=== PATIENT | male | born 1975 | race Caucasian/White ===

== ENCOUNTER 2017-08-16 14:26 | Emergency (ER) | payer SELFPAY ==
[~2017-08-16] VITALS: Ht 182.9 cm; Wt 80.0 kg
[2017-08-16 14:28] VITALS: BP 131/77; PULSE 81; RESP 20; TEMP 99; O2SAT 99
--- NOTE | 2017-08-16 15:12 | PD ---
Physical Exam Time Seen by Provider: 15:09 Narrative 42yo M c/o right hand fracture that occurred 2 weeks ago and was seen at [facility] and it was splinted. The splint is currently not on. He is requesting a cast and referral to a hand surgeon. Also complaining of cat bite and scratch to his left lower leg. Denies fever, vomiting. Unknown tetanus status. Patient seen in triage. VS reviewed. Awaiting bed placement. See next providers note for final patient disposition. Data Data Last Documented VS Vital Signs Date Time Temp Pulse Resp B/P (MAP) Pulse Ox O2 Delivery O2 Flow Rate FiO2 08/16/17 14:28 99.0 81 20 131/77 (95) 99 Room Air MDM Supervised Visit with MEGHNA: Katalina Dick Aug 16, 2017 15:12
[2017-08-16] MEDS ORDERED: RABIES VACCINE HUMAN DIPL CELL 2.5 UNITS/ML SYRINGE IM ONE (16:30)
[2017-08-16] MEDS ORDERED: RABIES IMMUNE GLOBULIN INJ 300 UNITS/2 ML VIAL IM ONE (16:30)
--- NOTE | 2017-08-16 16:43 | RADRPT ---
EXAM DATE/TIME: 08/16/2017 16:03 [place] COMPARISON: No previous studies available for comparison. INDICATIONS : Right hand pain, second digit MEDICAL HISTORY : None. SURGICAL HISTORY : None. ENCOUNTER: Initial ACUITY: 1 day PAIN SCORE: 8/10 LOCATION: Right upper extremity FINDINGS: Periosteal reaction seen distal shaft and neck region of the second metacarpal. I don't see a fractur e line. Other bones of the right hand appear normal. There are no subluxations. No radiopaque foreign body. CONCLUSION: Periosteal reaction of the distal half of the second metacarpal, nonspecific. Infection would be in t he differential in the proper clinical setting. A subacute fracture is conceivable but less likely as a distinct fracture line is not visible. I also don't see an underlying focal bone lesion. Jimbo Collins MD on August 16, 2017 at 16:39 Board Certified Radiologist. This report was verified electronically.
[2017-08-16] MEDS ORDERED: AUGM875T3 PO (17:57)
--- NOTE | 2017-08-16 17:57 | PD ---
HPI Chief Complaint: Injury Time Seen by Provider: 16:05 Travel History International Travel<30 days: No Contact w/Intl Traveler<30days: No Traveled to known affect area: No History of Present Illness HPI 42 y male presents to the ED for concern of being scratched and bit by a cat today. Says that this was an unprovoked ferel cat bite. Pt states that he has noticed this cat acting strange and 'gnawing' at his back door. Apparently, he has seen this cat around the neighborhood and it has had an erratic behavior. Pt denies significant pain or swelling. Denies significant blood loss. States the cat injured him in his right lower calf. Denies fever, chills, tremors, shortness of breath, chest pain. In addition, he says that his Right second MCP had significant pain after 'cracking' his finger on the car dash 3 days ago. States he intentionally did this as he normally cracks his knuckles but the last time her did this, he developed significant pain and swelling. Says he previously was evaluated at [facility] and told him he had a fracture. He does not have discharge paperwork with him. Denies IVDU, chronic medical conditions, or medication use. Says he uses OTC medications for pain. Denies numbness or tingling of the extremities. Has full function of his hand however, it is very painful. [facility] Past Medical History Medical History: Denies Significant Hx ?: Not Past Surgical History Surgical History: No Previous Surgery Social History Alcohol Use: No Tobacco Use: No Substance Use: No Allergies-Medications (Allergen,Severity, Reaction): Coded Allergies: morphine (Verified Allergy, Unknown, 08/16/17) Reported Meds & Prescriptions Reported Meds & Active Scripts Active Augmentin (Amoxicillin-Clavulanate) 875-125 Mg Tab 1 Tab PO BID Review of Systems Except as stated in HPI: all other systems reviewed are Neg Physical Exam Narrative GENERAL: Well developed, well nourished, non toxic appearing male SKIN: Warm and dry. right lower calf, 3 puncture wounds consistent with superficial bite, multiple superficial lacerations, no erythema or edema of the leg. Neurovascularly intact. HEAD: Atraumatic. Normocephalic. No evidence of recent IVDU or watson to indicate such. EYES: Pupils equal and round. No scleral icterus. No injection or drainage. ENT: No nasal bleeding or discharge. Mucous membranes pink and moist. NECK: Trachea midline. No JVD. CARDIOVASCULAR: Regular rate and rhythm. RESPIRATORY: No accessory muscle use. Clear to auscultation. Breath sounds equal bilaterally. GASTROINTESTINAL: Abdomen soft, non-tender, nondistended. Hepatic and splenic margins not palpable. MUSCULOSKELETAL: Extremities without clubbing, cyanosis, or edema. No obvious deformities. right hand- second MCP, edema without erythema, ecchymosis directly over joint, limited ROM secondary to pain, normal cap refill, 2 point discrimination normal , decreased strength secondary to pain. NEUROLOGICAL: Awake and alert. No obvious cranial nerve deficits. Motor grossly within normal limits. Five out of 5 muscle strength in the arms and legs except where noted. Normal speech. PSYCHIATRIC: Appropriate mood and affect; insight and judgment normal. Right 2nd MCP Data Data Last Documented VS Vital Signs Date Time Temp Pulse Resp B/P (MAP) Pulse Ox O2 Delivery O2 Flow Rate FiO2 08/16/17 18:12 08/16/17 14:28 99.0 81 20 99 Room Air Orders Orders Hand, Complete ([id number]) (08/16/17 15:12) Rabies Immune Globulin Inj (Hyperrab S/D (08/16/17 16:30) Rabies Vaccine Human Cell Inj (Imovax In (08/16/17 16:30) Tetanus/Diphtheria Tox Adult (Tetanus/Di (08/16/17 18:00) Support Splint (08/16/17 18:09) Mandatory Outpatient Referral (08/16/17 18:10) Ed Discharge Order (08/16/17 18:14) Cockup Hand Splint (08/16/17 ) MDM Medical Decision Making Medical Screen Exam Complete: Yes Emergency Medical Condition: Yes Differential Diagnosis cat bite, rabies vaccination, osteomyelitis, cellulitis Narrative Course 42 y male presents to the ED for concern of being scratched and bit by a cat today. Says that this was an unprovoked ferel cat bite. Pt states that he has noticed this cat acting strange and 'gnawing' at his back door. Apparently, he has seen this cat around the neighborhood and it has had an erratic behavior. Pt denies significant pain or swelling. Denies significant blood loss. States the cat injured him in his right lower calf. Denies fever, chills, tremors, shortness of breath, chest pain. In addition, he says that his Right second MCP had significant pain after 'cracking' his finger on the car dash 3 days ago. States he intentionally did this as he normally cracks his knuckles but the last time her did this, he developed significant pain and swelling. Says he previously was evaluated at [facility] and told him he had a fracture. He does not have discharge paperwork with him. Denies IVDU, chronic medical conditions, or medication use. Says he uses OTC medications for pain. Denies numbness or tingling of the extremities. Has full function of his hand however, it is very painful. Vital signs stable. I explained that rabies has not been prevalent in the area but did offer rabies treatment. Because he had seen the cat around his house and it has only recently began acting irate, I agreed to treat prophylactically. 1590 total Rabies immunoglobulin was injected into the wounds on the right lower extremity. Rabies and Tetanus administered. Advised patient to follow up in the ER in 3, 7 , and 14 days for vaccinations. Last Impressions Hand X-Ray 08/16/17 1512 Signed Impressions: Service Date/Time: Wednesday, August 16, 2017 16:03 - CONCLUSION: Periosteal reaction of the distal half of the second metacarpal, nonspecific. Infection would be in the differential in the proper clinical setting. A subacute fracture is conceivable but less likely as a distinct fracture line is not visible. I also don't see an underlying focal bone lesion. Jimbo Collins MD Right hand xray ordered as patient states he was previously diagnosed with a fracture and did not have follow up. Describes a potential traumatic injury, moderate pain. I spoke with Dr. De Dios regarding this patient. Because of the periosteal reaction and recommended patient follow closely with hand specialist orthopedic. Pt placed in splint and advised to follow up with ortho. Mandatory ortho consult placed. Advised to return to worsening or persistent symptoms. Pt states understanding of the importance of follow up. 08/19/2017 2142 After reviewing my note in this chart, I discovered that the dates for return was not on the discharge instructions and pt had not returned for further vaccines. I spoke with [facility] community director, and requested pt be called in to receive vaccinations for tomorrow (preferably today but understandably late in the day) , 1/24, and 08/30. Again, I have a low suspicion of actual rabies inoculation however, because the series was initiated, this should be completed. Diagnosis Primary Impression: Hand pain Qualified Codes: M79.641 - Pain in right hand Additional Impression: Cat bite Qualified Codes: W55.01XA - Bitten by cat, initial encounter Referrals: Joe Lerma III, MD, James McMaster MD Additional Instructions: Follow up with your primary care physician within 2-3 days. If your symptoms persist or worsen, return to the emergency department. Keep area clean and dry. You may bathe as normal. You may use [id number] triple antibiotic ointments for your injury daily. Change dressings daily. If bleeding starts again, applied pressure and elevate the area. If he developed increased redness, swelling, or pain return to the emergency department. Scripts Amoxicillin-Clavulanate (Augmentin) 875-125 Mg Tab 1 TAB PO BID for Infection, #14 TAB 0 Refills Prov: Chaya Vizcaino 08/16/17 Disposition: 01 DISCHARGE HOME Condition: Stable Chaya Vizcaino Aug 16, 2017 17:57
[2017-08-16] MEDS ORDERED: TETANUS/DIPHTHERIA TOXOID ADULT 0.5 ML VIAL IM ONE (18:00)
== END 2017-08-16 18:23 | disposition home or self-care (01) ==
LOC: NEPK 14:26
DX: M79.641 Pain in right hand (principal); Z23 Encounter for immunization; Z29.14 Encounter for prophylactic rabies immune globulin; Z88.5 Allergy status to narcotic agent
CPT/HCPCS: 29125; 73130; 90471; 90472; 90675; 90714; 99283; L3908